=== PATIENT | male | born 1930 | race Caucasian/White ===

== ENCOUNTER 2016-08-12 19:55 | Inpatient (IN) | payer OTHER ==
--- NOTE | 2016-08-12 20:22 | PDOC ---
History of Present Illness - General Chief Complaint: Revisit, Lab Variance Stated Complaint: HYPERKALEMIA, PNEUMONIA, CHF Time Seen by Provider: 08/12/16 20:05 History Source: [facility] Exam Limitations: Dementia Past History - Past Medical History Allergies/Adverse Reactions: Allergies Allergy/AdvReac Type Severity Reaction Status Date / Time No Known Allergies Allergy Verified 05/17/16 20:30 Home Medications: Ambulatory Orders Apixaban [Eliquis -] 5 mg PO BID #60 tablet 05/20/16 Metoprolol Succinate [Toprol XL -] 25 mg PO DAILY #30 tab.sr.24h 05/20/16 Lactose-Reduced Food [Ensure Plus] 237 ml PO TID 08/12/16 Moxifloxacin HCl [Avelox] 400 mg PO DAILY 08/12/16 Sodium Polystyrene Sulfonate [Kayexalate] 30 gm PO TID 08/12/16 - Psycho/Social/Smoking Cessation Hx Suicidal Ideation: No Smoking History: Unknown if ever smoked Have you smoked in the past 12 months: No Information on smoking cessation initiated: No Hx Alcohol Use: No *Physical Exam - Vital Signs Last Vital Signs Temp Pulse Resp BP Pulse Ox 97.8 F 72 18 109/77 96 08/12/16 20:11 08/12/16 20:11 08/12/16 20:11 08/12/16 20:11 08/12/16 20:11 *DC/Admit/Observation/Transfer - Discharge Dispostion Condition at time of disposition: Stable
--- NOTE | 2016-08-12 20:37 | PDOC ---
History of Present Illness - General History Source: [facility] Exam Limitations: Dementia - History of Present Illness Initial Comments: 08/12/16 20:52 Patient is a 85 year old male with significant past medical history of Afib (on Eliquis), UTI, dementia and unsteady gait who presents to the ED from [facility] for elevated potassium. Patient without complaint. As per EMS and [place] records the patient is refusing all of his medication. Unable to obtain additional history from the patient. Unable to obtain HPI secondary to patients dementia. Patient without complaint. General: +Very hard of hearing. HEENT: +mucous membranes dry. Throat: Normal, tonsils normal, no erythema or exudate Neck: Supple, no meningeal signs, no lymphadenopathy Eyes: Pupils equal reactive and round, extraocular motion intact Chest: Nontender to palpation Cardiac: +Irregularly irregular rate and rhythm, S1-S2 normal, no murmurs rubs or gallops Respiratory: Lungs clear to auscultation bilateral Abdomen: Soft, nondistended, normal bowel sounds, nontender to palpation diffusely Extremities: Warm, dry, no cyanosis, clubbing, or edema Skin: No rashes Neuro: grossly intact, moves all extremities, non focal exam Psych: uncooperative at times, otherwise normal mood and affect <Sveta Turpin - Last Filed: 08/12/16 21:38> - General History Source: Patient, [facility] Exam Limitations: Dementia, Other - History of Present Illness Initial Comments: A portion of this note was documented by scribe services under my direction. I have reviewed the details of the note, within reason, and agree with the documentation. The case summary and management plan written by me. Assessment and plan: This is an 85-year-old demented male sent in from a local senior living for evaluation of hyperkalemia pneumonia and CHF. Patient EKG showed atrial fibrillation rhythm at a rate of [address]-T wave changes. Patient's chest x-ray does show left lower lobe consolidation with some mild congestive changes. Patient's vitals are unremarkable his O2 sat is 86% but otherwise are normal and he is afebrile Patient does not have a white count or left shift so most likely his pneumonia is viral in origin. However given of his age of 85 he is immunocompromise secondary to being his age and the white count may not reflect accurately his pneumonia. Patient started on Rocephin after blood cultures were done. Patient's repeat potassium came back at 5.5 and he was given Kayexalate. Patient was also given 40 mg of Lasix for his pulmonary vascular congestion. Patient will be admitted to an inpatient noncardiac telemetry bed 08/12/16 22:26 08/12/16 22:26 <Tiana Giraldo I - Last Filed: 08/12/16 22:26> - General Chief Complaint: Revisit, Lab Variance Stated Complaint: HYPERKALEMIA, PNEUMONIA, CHF Time Seen by Provider: 08/12/16 20:05 Past History <Sveta Turpin - Last Filed: 08/12/16 21:38> - Past Medical History Cardiac Disorders: Yes (AFIB) Dementia: Yes HTN: Yes Other medical history: GAIT AND MOBILITY DISTURBANCE, HARD OF HEARING - Psycho/Social/Smoking Cessation Hx Suicidal Ideation: No Smoking History: Unknown if ever smoked Have you smoked in the past 12 months: No Information on smoking cessation initiated: No Hx Alcohol Use: No <Tiana Giraldo I - Last Filed: 08/12/16 22:26> - Past Medical History Allergies/Adverse Reactions: Allergies Allergy/AdvReac Type Severity Reaction Status Date / Time No Known Allergies Allergy Verified 05/17/16 20:30 Home Medications: Ambulatory Orders Apixaban [Eliquis -] 5 mg PO BID #60 tablet 05/20/16 Metoprolol Succinate [Toprol XL -] 25 mg PO DAILY #30 tab.sr.24h 05/20/16 Lactose-Reduced Food [Ensure Plus] 237 ml PO TID 08/12/16 Moxifloxacin HCl [Avelox] 400 mg PO DAILY 08/12/16 Sodium Polystyrene Sulfonate [Kayexalate] 30 gm PO TID 08/12/16 *Physical Exam - Vital Signs Last Vital Signs Temp Pulse Resp BP Pulse Ox 97.8 F 72 18 109/77 96 08/12/16 20:11 08/12/16 20:11 08/12/16 20:11 08/12/16 20:11 08/12/16 20:11 <Sveta Turpin - Last Filed: 08/12/16 21:38> - Vital Signs Last Vital Signs Temp Pulse Resp BP Pulse Ox 97.8 F 72 18 109/77 96 08/12/16 20:11 08/12/16 20:11 08/12/16 20:11 08/12/16 20:11 08/12/16 20:11 <Tiana Giraldo I - Last Filed: 08/12/16 22:26> ED Treatment Course - LABORATORY CBC & Chemistry Diagram: 08/12/16 20:25 08/12/16 20:25 - ADDITIONAL ORDERS Additional order review: 08/12/16 20:25 RBC 4.54 MCV 94.5 MCHC 32.8 RDW 15.6 MPV 7.7 Neutrophils % 63.7 Lymphocytes % 22.5 Monocytes % 10.9 H Eosinophils % 1.8 Basophils % 1.1 - RADIOLOGY Radiology Studies Ordered: 08/12/16 21:39 EXAM#: TYPE/EXAM: RESULT: RAD/CHEST X-RAY PORTABLE* Cough Portable chest x-ray AP sitting. Since prior chest x-ray dated 05/17/2016 , the cardiac silhouette remains slightly to moderately enlarged with unfolding of the aortic arch. There are increased interstitial lung markings, bilaterally suggestive of mild pulmonary venous congestion. There is also consolidation the left lower lobe and mild atelectatic changes versus infiltrates in the right lung base. Small bilateral pleural effusion. <Sveta Turpin - Last Filed: 08/12/16 21:38> - LABORATORY CBC & Chemistry Diagram: 08/12/16 20:25 08/12/16 20:25 - RADIOLOGY Radiology Studies Ordered: Category Date Time Status CHEST X-RAY PORTABLE* [RAD] Stat Radiology 08/12/16 20:31 Ordered <Tiana Giraldo I - Last Filed: 08/12/16 22:26> *DC/Admit/Observation/Transfer - Attestations Scribe Attestion: 08/12/16 20:53 Documentation prepared by LEV Baird, acting as medical operations supervisor for Tiana Giraldo MD/. <Sveta Turpin - Last Filed: 08/12/16 21:38> - Discharge Dispostion Admit: Yes <Tiana Giraldo I - Last Filed: 08/12/16 22:26> Diagnosis at time of Disposition: Atrial fibrillation with controlled ventricular response, Hyperkalemia CHF (congestive heart failure) Qualifiers: Congestive heart failure type: unspecified congestive heart failure type Congestive heart failure chronicity: unspecified congestive heart failure chronicity Qualified Code(s): I50.9 - Heart failure, unspecified Pneumonia Qualifiers: Pneumonia type: due to unspecified organism Laterality: left Lung location: lower lobe of lung Qualified Code(s): J18.9 - Pneumonia, unspecified organism - Discharge Dispostion Condition at time of disposition: Stable - Referrals Referrals: Forrest Voss MD [Primary Care Provider] -
[2016-08-12 20:41] LABS: MEAN CELL VOLUME 94.5 fl (80-96); RDW 15.6 % (11.9-15.9)
[2016-08-12 20:43] LABS: BASOPHIL 1.1 % (0-2.0); EOSINOPHIL 1.8 % (0-4.5); MCHC 32.8 g/dl (32.0-35.9); MEAN PLT VOLUME 7.7 fl (7.5-11.1); NEUTROPHILS 63.7 % (42.8-82.8); PLATELET COUNT 298 K/MM3 (134-434); WHITE BLOOD COUNT 7.2 K/mm3 (4.0-10.0)
[2016-08-12 20:59] LABS: ALBUMIN 3.3 g/dl (3.5-5.0); ALK PHOS 79 U/L (32-92); ANION GAP 5 (8-16); BILIRUBIN,TOTAL 0.5 mg/dl (0.2-1.0); CALCIUM 8.7 mg/dl (8.4-10.2); CO2 31 mmol/L (22-28); CREATININE 0.7 mg/dl (0.6-1.3); GLUCOSE,RANDOM 108 mg/dl (74-106); SGOT/AST 30 U/L (10-42); SGPT/ALT 22 U/L (10-40); TOT PROT 6.4 g/dl (6.4-8.3)
[2016-08-12 21:30] LABS: TROPONIN I (DFP) 0.04 ng/ml (0.03-0.50)
[2016-08-12] MEDS ORDERED: SODIUM POLYSTYRENE SULFONATE 15 GM/60 ML BOTTLE PO ONE (21:33)
[2016-08-12] MEDS ORDERED: SODIUM POLYSTYRENE SULFONATE 15 GM/60 ML BOTTLE ONE (21:38)
[2016-08-12] MEDS ORDERED: CEFTRIAXONE 1,000 MG in DEXTROSE 5%-WATER - 50 ML IVPB STA (21:52)
[2016-08-12] MEDS ORDERED: cefTRIAXone SODIUM 1 GM VIAL ONE (22:12)
[2016-08-13] MEDS ORDERED: ACETAMINOPHEN 325 MG TABLET (FP) PO PRN (02:46)
[2016-08-13 05:20] VITALS: BMI 25.7
[2016-08-13 08:45] LABS: BASOPHIL 0.6 % (0-2.0); MCH 31.9 pg (25.7-33.7); MCHC 34.1 g/dl (32.0-35.9); MEAN CELL VOLUME 93.7 fl (80-96); NEUTROPHILS 71.7 % (42.8-82.8); PLATELET COUNT 272 K/MM3 (134-434); RDW 15.2 % (11.9-15.9); WHITE BLOOD COUNT 7.9 K/mm3 (4.0-10.0)
[2016-08-13 08:58] LABS: ALBUMIN 3.1 g/dl (3.5-5.0); ALK PHOS 74 U/L (32-92); ANION GAP 7 (8-16); BILIRUBIN,TOTAL 0.6 mg/dl (0.2-1.0); CALCIUM 8.4 mg/dl (8.4-10.2); CO2 27 mmol/L (22-28); CREATININE 0.7 mg/dl (0.6-1.3); GLUCOSE,RANDOM 87 mg/dl (74-106); SGOT/AST 21 U/L (10-42); SGPT/ALT 20 U/L (10-40); TOT PROT 5.9 g/dl (6.4-8.3)
[2016-08-13] MEDS: HEPARIN NA (PORCINE) 5,000 UNITS/ML 1ML VIAL SQ SCH ×2 (09:36→22:18)
[2016-08-13] MEDS: cefTRIAXone 1 GM/50 ML BAG (PRE-DOCKED) IVPB SCH (09:38)
[2016-08-13] MEDS ORDERED: CEFTRIAXONE 1 GM in DEXTROSE 5%-WATER - 100 ML IVPB SCH (10:00)
--- NOTE | 2016-08-13 11:11 | HP ---
Admitting History and Physical - Primary Care Physician PCP: Jacqueline Cotto - Admission Chief Complaint: elevated k History of Present Illness: 85 year old male with significant past medical history of Afib (on Eliquis), UTI , dementia and unsteady gait who presents to the ED from [facility] for elevated potassium. Patient without complaint. As per EMS and [place] records the patient is refusing all of his medication. Unable to obtain additional history from the patient.patient not able hear properly one of the reasons patient was brought in the hospital was because of hyperkalemia - Past Medical History Cardiovascular: Yes: AFIB - Smoking History Smoking history: Unknown if ever smoked Have you smoked in the past 12 months: No - Alcohol/Substance Use Hx Alcohol Use: No Home Medications - Allergies Allergies/Adverse Reactions: Allergies Allergy/AdvReac Type Severity Reaction Status Date / Time No Known Allergies Allergy Verified 05/17/16 20:30 - Home Medications Home Medications: Ambulatory Orders Apixaban [Eliquis -] 5 mg PO BID #60 tablet 05/20/16 Metoprolol Succinate [Toprol XL -] 25 mg PO DAILY #30 tab.sr.24h 05/20/16 Lactose-Reduced Food [Ensure Plus] 237 ml PO TID 08/12/16 Moxifloxacin HCl [Avelox] 400 mg PO DAILY 08/12/16 Sodium Polystyrene Sulfonate [Kayexalate -] 30 gm PO TID 08/12/16 Amoxicillin/Potassium Clav [Augmentin 875-125 Tablet] 1 each PO BID #10 tablet 08/14/16 Azithromycin [Zithromax 250mg Tablets -] 500 mg PO DAILY #5 tablet 08/14/16 Physical Examination Vital Signs: Vital Signs Temperature 98.4 F 08/13/16 06:55 Pulse Rate 74 08/13/16 06:55 Respiratory Rate 17 08/13/16 06:55 Blood Pressure 112/55 08/13/16 06:55 O2 Sat by Pulse Oximetry (%) 97 08/13/16 04:52 Constitutional: Yes: No Distress HENT: Yes: Atraumatic Neck: Yes: Supple Cardiovascular: Yes: Regular Rate and Rhythm Respiratory: Yes: CTA Bilaterally Gastrointestinal: Yes: Normal Bowel Sounds Extremities: Yes: WNL Neurological: Yes: Alert, Oriented Labs: CBC, BMP 08/13/16 07:55 08/13/16 07:55 Problem List - Problems (1) Atrial fibrillation with controlled ventricular response Code(s): I48.91 - UNSPECIFIED ATRIAL FIBRILLATION (2) Hyperkalemia Code(s): E87.5 - HYPERKALEMIA (3) Pneumonia Code(s): J18.9 - PNEUMONIA, UNSPECIFIED ORGANISM Qualifiers: Pneumonia type: due to unspecified organism Laterality: left Lung location: lower lobe of lung Qualified Code(s): J18.9 - Pneumonia, unspecified organism (4) A-fib Code(s): I48.91 - UNSPECIFIED ATRIAL FIBRILLATION Assessment/Plan Laboratory Tests 08/12/16 08/12/16 08/12/16 20:25 20:25 20:25 WBC 7.2 RBC 4.54 Hgb 14.1 Hct 42.9 MCV 94.5 MCHC 32.8 RDW 15.6 Plt Count 298 MPV 7.7 Neutrophils % 63.7 Lymphocytes % 22.5 Monocytes % 10.9 H Eosinophils % 1.8 Basophils % 1.1 Sodium 142 Potassium 5.5 H Chloride 106 Carbon Dioxide 31 H Anion Gap 5 L BUN 20 H Creatinine 0.7 Creat Clearance w eGFR > 60 Random Glucose 108 H Calcium 8.7 Total Bilirubin 0.5 AST 30 ALT 22 Alkaline Phosphatase 79 Creatine Kinase 47 Troponin I 0.04 Total Protein 6.4 Albumin 3.3 L 08/13/16 08/13/16 07:55 07:55 WBC 7.9 RBC 4.15 Hgb 13.3 Hct 38.9 MCV 93.7 MCHC 34.1 RDW 15.2 Plt Count 272 MPV 8.0 Neutrophils % 71.7 Lymphocytes % 15.7 D Monocytes % 11.0 H Eosinophils % 1.0 Basophils % 0.6 Sodium 140 Potassium 4.6 Chloride 106 Carbon Dioxide 27 Anion Gap 7 L BUN 18 Creatinine 0.7 Creat Clearance w eGFR > 60 Random Glucose 87 Calcium 8.4 Total Bilirubin 0.6 AST 21 D ALT 20 Alkaline Phosphatase 74 Creatine Kinase Troponin I Total Protein 5.9 L Albumin 3.1 L Active Medications Generic Name Dose Route Start Last Admin Trade Name Freq PRN Reason Stop Dose Admin Acetaminophen 650 mg 08/13/16 02:46 Tylenol - PO Q6H PRN FEVER OR PAIN Azithromycin 500 mg 08/13/16 13:30 08/13/16 13:30 Zithromax - PO 500 mg DAILY KAYLA Administration Ceftriaxone Sodium 1 gm 08/13/16 10:00 08/13/16 09:38 Rocephin 1gm Ivpb (Pre-Docked) IVPB 1 gm DAILY KAYLA Administration Heparin Sodium (Porcine) 5,000 unit 08/13/16 10:00 08/13/16 09:36 Heparin - SQ 5,000 unit BID KAYLA Administration 1.hyperkalemia resolved now 2.pna on iv abx 3.afib on eliquis 4.dementia dvt ppx
--- NOTE | 2016-08-13 13:12 | CONSULT ---
Consult Consult Specialty:: infectious diseases Reason for Consultation:: pneumonia - History of Present Illness History of Present Illness: 85 year old male with significant past medical history of Afib (on Eliquis), UTI , dementia and unsteady gait who presents to the ED from [facility] for elevated potassium. Patient without complaint. As per EMS and [place] records the patient is refusing all of his medication. Unable to obtain additional history from the patient.patient not able hear properly patient also very combative does not liek doctors per say one of the reasons patient was brought in the hospital was because of hyperkalemia - History Source History Provided By: Medical Record Limitations to Obtaining History: Clinical Condition - Past Medical History Cardio/Vascular: Yes: AFIB - Alcohol/Substance Use Hx Alcohol Use: No - Smoking History Smoking history: Unknown if ever smoked Have you smoked in the past 12 months: No Home Medications - Allergies Allergies/Adverse Reactions: Allergies Allergy/AdvReac Type Severity Reaction Status Date / Time No Known Allergies Allergy Verified 05/17/16 20:30 - Home Medications Home Medications: Ambulatory Orders Apixaban [Eliquis -] 5 mg PO BID #60 tablet 05/20/16 Metoprolol Succinate [Toprol XL -] 25 mg PO DAILY #30 tab.sr.24h 05/20/16 Lactose-Reduced Food [Ensure Plus] 237 ml PO TID 08/12/16 Moxifloxacin HCl [Avelox] 400 mg PO DAILY 08/12/16 Sodium Polystyrene Sulfonate [Kayexalate] 30 gm PO TID 08/12/16 Review of Systems Unable to obtain ROS, reason: unable to obtain Physical Exam Vital Signs: Vital Signs Temperature 98.4 F 08/13/16 06:55 Pulse Rate 74 08/13/16 06:55 Respiratory Rate 17 08/13/16 06:55 Blood Pressure 112/55 08/13/16 06:55 O2 Sat by Pulse Oximetry (%) 97 08/13/16 04:52 Constitutional: Yes: Anxious, Thin Eyes: Yes: Conjunctiva Clear HENT: Yes: Atraumatic Neck: Yes: Supple, Trachea Midline Cardiovascular: Yes: Pulse Irregular Respiratory: Yes: Regular, Poor Air Entry (at the abses) Gastrointestinal: Yes: Normal Bowel Sounds, Soft Musculoskeletal: Yes: WNL Extremities: Yes: WNL Neurological: Yes: Alert, Confusion Psychiatric: Yes: Alert, Other Labs: CBC, BMP 08/13/16 07:55 08/13/16 07:55 Imaging - Results Chest X-ray: Report Reviewed, Image Reviewed Assessment/Plan Congestive heart failure type: unspecified congestive heart failure type Congestive heart failure chronicity: unspecified congestive heart failure chronicity Qualified Code(s): I50.9 - Heart failure, unspecified Pneumonia type: due to unspecified organism Laterality: left Lung location: lower lobe of lung Qualified Code(s): J18.9 - Pneumonia, unspecified organism plan continue ceftriaxone will add zithro once patient stable we can switch from iv to oral abx rest ct hydration
[2016-08-13] MEDS: AZITHROMYCIN 250 MG TABLET (FP) PO SCH (13:30)
[2016-08-13] MEDS: METOPROLOL SUCCINATE 25 MG TAB.SR.24H (FP) PO SCH (17:25)
--- NOTE | 2016-08-13 21:05 | EKG ---
Test Reason : Blood Pressure : / mmHG Vent. Rate : 070 BPM Atrial Rate : 250 BPM P-R Int : 000 ms QRS Dur : 070 ms QT Int : 404 ms P-R-T Axes : 000 003 231 degrees QTc Int : 436 ms POOR DATA QUALITY, INTERPRETATION MAY BE ADVERSELY AFFECTED ATRIAL FIBRILLATION LOW VOLTAGE QRS NONSPECIFIC ST AND T WAVE ABNORMALITY ABNORMAL ECG WHEN COMPARED WITH ECG OF 17-MAY-2016 21:23, VENT. RATE HAS DECREASED BY 37 BPM Confirmed by SONI CHO MD ([id number]) on 08/13/2016 9:04:53 PM Referred By: MD MOLINA Confirmed By:SONI CHO MD
[2016-08-13] MEDS: APIXABAN 5 MG TABLET PO SCH (22:18)
[2016-08-14] MEDS: AZITHROMYCIN 250 MG TABLET (FP) PO SCH (11:02)
[2016-08-14] MEDS: cefTRIAXone 1 GM/50 ML BAG (PRE-DOCKED) IVPB SCH (11:02)
[2016-08-14] MEDS: APIXABAN 5 MG TABLET PO SCH ×2 (11:03→21:36)
[2016-08-14] MEDS: HEPARIN NA (PORCINE) 5,000 UNITS/ML 1ML VIAL SQ SCH ×2 (11:03→21:36)
[2016-08-14] MEDS: METOPROLOL SUCCINATE 25 MG TAB.SR.24H (FP) PO SCH (11:03)
--- NOTE | 2016-08-14 12:59 | PN ---
Progress Note, Physician - Current Medication List Current Medications: Active Medications Acetaminophen (Tylenol -) 650 mg PO Q6H PRN PRN Reason: FEVER OR PAIN Apixaban (Eliquis -) 5 mg PO BID [facility] Last Admin: 08/13/16 22:18 Dose: 5 mg Azithromycin (Zithromax -) 500 mg PO DAILY [facility] Last Admin: 08/13/16 13:30 Dose: 500 mg Ceftriaxone Sodium (Rocephin 1gm Ivpb (Pre-Docked)) 1 gm IVPB DAILY [facility] Last Admin: 08/14/16 11:02 Dose: 1 gm Heparin Sodium (Porcine) (Heparin -) 5,000 unit SQ BID [facility] Last Admin: 08/13/16 22:18 Dose: 5,000 unit Metoprolol Succinate (Toprol Xl -) 25 mg PO DAILY [facility] Last Admin: 08/13/16 17:25 Dose: 25 mg - Objective Vital Signs: Vital Signs Temperature 98.6 F 08/14/16 05:53 Pulse Rate 83 08/14/16 05:53 Respiratory Rate 18 08/14/16 05:53 Blood Pressure 116/72 08/14/16 05:53 O2 Sat by Pulse Oximetry (%) 95 08/14/16 05:53 Constitutional: Yes: No Distress Neck: Yes: Supple Cardiovascular: Yes: Regular Rate and Rhythm Respiratory: Yes: CTA Bilaterally Gastrointestinal: Yes: Normal Bowel Sounds Extremities: Yes: WNL Neurological: Yes: Alert Labs: CBC, BMP 08/13/16 07:55 08/13/16 07:55 Problem List - Problems (1) Atrial fibrillation with controlled ventricular response Code(s): I48.91 - UNSPECIFIED ATRIAL FIBRILLATION (2) Hyperkalemia Code(s): E87.5 - HYPERKALEMIA (3) Pneumonia Code(s): J18.9 - PNEUMONIA, UNSPECIFIED ORGANISM Qualifiers: Pneumonia type: due to unspecified organism Laterality: left Lung location: lower lobe of lung Qualified Code(s): J18.9 - Pneumonia, unspecified organism (4) A-fib Code(s): I48.91 - UNSPECIFIED ATRIAL FIBRILLATION Assessment/Plan 1.hyperkalemia resolved now 2.pna on iv abx...willswitch to po 3.afib on eliquis 4.dementia dc to sn[facility] in am if stable
--- NOTE | 2016-08-14 13:34 | PN ---
Progress Note, Physician History of Present Illness: patient stable no issues - Current Medication List Current Medications: Active Medications Acetaminophen (Tylenol -) 650 mg PO Q6H PRN PRN Reason: FEVER OR PAIN Apixaban (Eliquis -) 5 mg PO BID REPLACED BY [facility] Last Admin: 08/13/16 22:18 Dose: 5 mg Azithromycin (Zithromax -) 500 mg PO DAILY REPLACED BY [facility] Last Admin: 08/13/16 13:30 Dose: 500 mg Ceftriaxone Sodium (Rocephin 1gm Ivpb (Pre-Docked)) 1 gm IVPB DAILY REPLACED BY [facility] Last Admin: 08/14/16 11:02 Dose: 1 gm Heparin Sodium (Porcine) (Heparin -) 5,000 unit SQ BID REPLACED BY [facility] Last Admin: 08/13/16 22:18 Dose: 5,000 unit Metoprolol Succinate (Toprol Xl -) 25 mg PO DAILY REPLACED BY [facility] Last Admin: 08/13/16 17:25 Dose: 25 mg - Objective Vital Signs: Vital Signs Temperature 98.6 F 08/14/16 05:53 Pulse Rate 83 08/14/16 05:53 Respiratory Rate 18 08/14/16 05:53 Blood Pressure 116/72 08/14/16 05:53 O2 Sat by Pulse Oximetry (%) 95 08/14/16 05:53 Constitutional: Yes: No Distress, Calm Eyes: Yes: Conjunctiva Clear HENT: Yes: Atraumatic Neck: Yes: Supple Cardiovascular: Yes: Regular Rate and Rhythm Respiratory: Yes: Regular, Poor Air Entry Gastrointestinal: Yes: Normal Bowel Sounds, Soft Musculoskeletal: Yes: WNL Extremities: Yes: WNL Neurological: Yes: Alert, Other Psychiatric: Yes: Alert Labs: CBC, BMP 08/13/16 07:55 08/13/16 07:55 Assessment/Plan Congestive heart failure type: unspecified congestive heart failure type Congestive heart failure chronicity: unspecified congestive heart failure chronicity Qualified Code(s): I50.9 - Heart failure, unspecified Pneumonia type: due to unspecified organism Laterality: left Lung location: lower lobe of lung Qualified Code(s): J18.9 - Pneumonia, unspecified organism plan patient doing well patient changed to augmentin and zithro incentive daniel
[2016-08-15 06:24] VITALS: BP 122/68; PULSE 99; TEMP 97.6
[2016-08-15] MEDS: cefTRIAXone 1 GM/50 ML BAG (PRE-DOCKED) IVPB SCH (09:40)
[2016-08-15] MEDS: HEPARIN NA (PORCINE) 5,000 UNITS/ML 1ML VIAL SQ SCH (09:44)
[2016-08-15] MEDS: APIXABAN 5 MG TABLET PO SCH (10:00)
[2016-08-15] MEDS: METOPROLOL SUCCINATE 25 MG TAB.SR.24H (FP) PO SCH (10:00)
[2016-08-15] MEDS: AZITHROMYCIN 250 MG TABLET (FP) PO SCH (10:00)
--- NOTE | 2016-08-15 13:43 | DS ---
Physical Examination Vital Signs: Vital Signs Temperature 97.6 F 08/15/16 06:22 Pulse Rate 99 H 08/15/16 06:22 Respiratory Rate 18 08/15/16 06:22 Blood Pressure 122/68 08/15/16 06:22 O2 Sat by Pulse Oximetry (%) 95 08/15/16 09:52 Constitutional: Yes: Calm HENT: Yes: Atraumatic Neck: Yes: Supple Cardiovascular: Yes: Regular Rate and Rhythm Respiratory: Yes: CTA Bilaterally Gastrointestinal: Yes: Normal Bowel Sounds Extremities: Yes: WNL Neurological: Yes: Alert, Oriented Labs: CBC, BMP 08/13/16 07:55 08/13/16 07:55 Discharge Summary Reason For Visit: AFIB/CHF/PNEUMONIA Condition: Stable - Instructions Diet, Activity, Other Instructions: fu lavs in 2-3 days Referrals: Forrest Voss MD [Primary Care Provider] - Disposition: ASSISTED FACILITY - Home Medications Comprehensive Discharge Medication List: Ambulatory Orders Apixaban [Eliquis -] 5 mg PO BID #60 tablet 05/20/16 Metoprolol Succinate [Toprol XL -] 25 mg PO DAILY #30 tab.sr.24h 05/20/16 Lactose-Reduced Food [Ensure Plus] 237 ml PO TID 08/12/16 Moxifloxacin HCl [Avelox] 400 mg PO DAILY 08/12/16 Sodium Polystyrene Sulfonate [Kayexalate -] 30 gm PO TID 08/12/16 Amoxicillin/Potassium Clav [Augmentin 875-125 Tablet] 1 each PO BID #10 tablet 08/14/16 Azithromycin 250 mg PO DAILY #5 tablet 08/14/16 dc to [facility]
== END 2016-08-15 11:59 | DRG 195 ==
LOC: FER 19:55 → FM/S 08-13 01:02
PROVIDERS: ADMIT Internal Medicine; ATTEND Internal Medicine
DX: J18.9 Pneumonia, unspecified organism (principal); E87.5 Hyperkalemia; I48.91 Unspecified atrial fibrillation; Z79.01 Long term (current) use of anticoagulants; F03.90 Unspecified dementia, unspecified severity, without behavioral disturbance, psychotic disturbance, mood disturbance, and anxiety; R26.81 Unsteadiness on feet; H91.93 Unspecified hearing loss, bilateral; I11.0 Hypertensive heart disease with heart failure; I50.9 Heart failure, unspecified
CPT/HCPCS: 36415; 71010-TC; 80053; 82550; 84484; 85025; 87040; 93005; 99282-25; J1644